=== PATIENT | male | born 1965 | race Caucasian/White ===

== ENCOUNTER 2019-11-24 16:02 | Observation (INO) | payer MEDICAID ==
[2019-11-24] MEDS ORDERED: Sodium Chloride 0.9% 10 ML Syringe FLUSH PRN (17:05)
[2019-11-24] MEDS ORDERED: Sodium Chloride 0.9% 1,000 ML IV SCH (17:15)
[2019-11-24] MEDS ORDERED: Acetaminophen 325 MG Tab PO PRN (18:24)
[2019-11-24] MEDS: Sodium Chloride 0.9% 1,000 ML IV SCH (19:40)
[2019-11-24] MEDS ORDERED: Bacitracin Oint 1 GM U/D Packet TOP ONE (20:31)
[2019-11-24] MEDS ORDERED: Albuterol Inhaler **OWN MED INH PRN (20:32)
--- NOTE | 2019-11-24 20:43 | PCM.HP.2 ---
H&P History of Present Illness - General Date of Service: 11/24/19 Admit Problem/Dx: Admission Diagnosis/Problem Admission Diagnosis/Problem Difficulty breathing Source of Information: Patient History Limitations: Reports: No Limitations - History of Present Illness Onset of Symptoms: Reports: Gradual Symptom Onset Date: 11/17/19 Duration of Symptoms: Reports: Getting Worse Location: Reports: Chest, Generalized Severity: Moderate Improves with: Reports: None Worsens with: Reports: Movement Associated Symptoms: Reports: Cough, Headaches, Shortness of Breath, Weakness. Denies: Fever/Chills, Nausea/Vomiting - Related Data Allergies/Adverse Reactions: Allergies Allergy/AdvReac Type Severity Reaction Status Date / Time No Known Allergies Allergy Verified 01/12/17 07:45 Home Medications: Home Meds Lisinopril 10 mg PO DAILY 01/11/17 [History] Albuterol Sulfate [Proair Hfa] 1 - 2 inh PO DAILY PRN 11/24/19 [History] Aspirin [Lo-Dose Aspirin EC] 81 mg PO DAILY 11/24/19 [History] Budesonide/Formoterol [Symbicort 160-4.5 MCG] 2 inh PO BID 11/24/19 [History] Past Medical History Cardiovascular History: Reports: Hypertension Respiratory History: Reports: COPD, SOB Other Respiratory History: SMOKES, CONGESTED, PRODUCTIVE COUGH, Musculoskeletal History: Reports: Back Pain, Chronic - Infectious Disease History Infectious Disease History: Reports: Influenza Other Infectious Disease History: INf A three years ago - Past Surgical History Other Cardiovascular Surgeries/Procedures: HX PREVIOUS STRESS TEST BUT NEGATIVE Musculoskeletal Surgical History: Reports: Other (See Below) Other Musculoskeletal Surgeries/Procedures:: L5 S! fusion Social & Family History - Family History Cardiac: Reports: Bypass, CAD, Heart Valve Replacement, Hypertension Respiratory: Reports: COPD Musculoskeletal: Reports: Arthritis, Back pain, Chronic, Osteoarthritis Endocrine/Metabolic: Reports: Diabetes, type II, Obesity/MBI 30+ - Tobacco Use Smoking Status *Q: Current Every Day Smoker Years of Tobacco use: 42 Packs/Tins Daily: 1 Used Tobacco, but Quit: No Second Hand Smoke Exposure: No - Caffeine Use Caffeine Use: Reports: Coffee - Alcohol Use Days Per Week of Alcohol Use: 5 Number of Drinks Per Day: 4 Total Drinks Per Week: 20 - Recreational Drug Use Recreational Drug Use: Yes Drug Use in Last 12 Months: Yes Recreational Drug Type: Reports: Marijuana/Hashish Recreational Drug Use Frequency: Weekly H&P Review of Systems - Review of Systems: Review Of Systems: See Below General: Reports: Decreased Appetite. Denies: Fever, Weakness HEENT: Reports: No Symptoms Pulmonary: Reports: Shortness of Breath, Cough Cardiovascular: Reports: Dyspnea on Exertion. Denies: Chest Pain, Orthopnea Gastrointestinal: Reports: Diarrhea. Denies: Abdominal Pain, Nausea, Vomiting Musculoskeletal: Reports: No Symptoms Skin: Reports: No Symptoms Neurological: Reports: No Symptoms Exam - Exam Exam: See Below - Vital Signs Vital Signs: Last Vital Signs Temp 37.2 C 11/24/19 18:24 Pulse 85 11/24/19 18:24 Resp 20 11/24/19 18:24 BP 143/84 H 11/24/19 18:24 Pulse Ox 92 L 11/24/19 18:25 Weight: 63.321 kg - Exam Quality Assessment: No: Supplemental Oxygen General: Alert, Oriented, Cooperative, Mild Distress HEENT: PERRLA, Conjunctiva Clear, Hearing Intact, Mucosa Moist & Roseto, Nares Patent, Posterior Pharynx Clear Neck: Supple, Full Range of Motion Lungs: Clear to Auscultation, Other (Breath sounds equal, expiratory wheezes in all field; occasional crackles bilaterally) Cardiovascular: Regular Rate, Regular Rhythm GI/Abdominal Exam: Soft, Non-Tender, No Distention Back Exam: Normal Inspection Extremities: Normal Inspection, Normal Range of Motion, Normal Capillary Refill Skin: Warm, Dry, Intact, Wound (abrasion to outer aspect) Neuro Extensive - Mental Status: Alert, Oriented x3, Normal Mood/Affect - Patient Data Lab Results Last 24 hrs: Laboratory Results - last 24 hr 11/24/19 11/24/19 Range/Units 16:17 16:17 WBC 8.8 (4.0-11.0) K/uL RBC 5.16 (4.50-6.50) M/uL Hgb 17.4 (13.0-18.0) g/dL Hct 48.2 (40.0-54.0) % MCV 93 (76-96) fL MCH 33.7 H (27.0-32.0) pg MCHC 36.1 H (31.0-35.0) g/dL RDW 12.4 (11.0-16.0) % Plt Count 263 D (150-400) K/uL MPV 10.0 (6.0-10.0) fL Neut % (Auto) 66.9 (45.0-70.0) % Lymph % (Auto) 14.3 L (20.0-40.0) % [place] % (Auto) 17.7 H (3.0-10.0) % Eos % (Auto) 0.8 L (1.0-5.0) % Baso % (Auto) 0.3 (0.0-0.5) % Neut # (Auto) 5.91 (2.00-7.50) K/uL Lymph # (Auto) 1.26 L (1.50-4.00) K/uL [place] # (Auto) 1.56 H (0.20-0.80) K/uL Eos # (Auto) 0.07 (0.04-0.40) K/uL Baso # (Auto) 0.03 (0.02-0.10) K/uL Sodium 126 L (136-145) mmol/L Potassium 4.1 (3.5-5.1) mmol/L Chloride 88 L* (98-107) mmol/L Carbon Dioxide 35.4 H (21.0-32.0) mmol/L Anion Gap 6.7 (5.0-15.0) mmol/L BUN 9 D (8-26) mg/dL Creatinine 0.72 (0.70-1.30) mg/dL Est Cr Clr Drug Dosing TNP Estimated GFR (MDRD) > 60 (>60) MLS/MIN BUN/Creatinine Ratio 12.5 (6-25) Glucose 117 H D (74-100) mg/dL Calcium 9.0 (8.5-10.1) mg/dL Result Diagrams: 11/24/19 16:17 11/24/19 16:17 Yves Results Last 24 hrs: Microbiology 11/24/19 16:17 Influenza Type A Antigen Screen - Final Nasal, Unspecified NEGATIVE INFLUENZA A VIRUS AG REFERENCE RANGE: NEGATIVE Influenza Type B Antigen Screen - Final NEGATIVE INFLUENZA B VIRUS AG REFERENCE RANGE: NEGATIVE Sepsis Event Note - Evaluation Sepsis Screening Result: No Definite Risk - Focused Exam Vital Signs: Vital Signs Temp Pulse Resp BP Pulse Ox 11/24/19 18:25 92 L 11/24/19 18:24 37.2 C 85 20 143/84 H 92 L 11/24/19 17:49 37.2 C 80 18 143/85 H 91 L Date Exam was Performed: 11/24/19 Time Exam was Performed: 21:17 Problem List Initiated/Reviewed/Updated: No Orders Last 24hrs: Active Orders 24 hr Category Date Time Status Patient Status [ADT] Routine ADT 11/24/19 18:24 Active Oxygen Therapy [RC] PRN Care 11/24/19 18:24 Active Pulse Oximetry [RC] PRN Care 11/24/19 18:25 Active Vital Signs [RC] Q4H Care 11/24/19 18:24 Active Regular Diet [DIET] Diet 11/24/19 Dinner Ordered Chest 2V [CR] Routine Exams 11/24/19 Taken BASIC METABOLIC PANEL,BMP [CHEM] Routine Lab 11/25/19 09:00 Ordered CULTURE MRSA SURVEY [RM] Routine Lab 11/24/19 19:55 Received Acetaminophen [Tylenol] Med 11/24/19 18:24 Active 650 mg PO Q4H PRN Albuterol [Ventolin HFA] Med 11/24/19 20:32 Ordered 1 - 2 inh INH DAILY PRN Aspirin [Halfprin] Med 11/25/19 08:00 Ordered 81 mg PO DAILY Bacitracin [Bacitracin Oint 1 GM] Med 11/24/19 20:31 Once 1 dose TOP ONETIME ONE Budesonide/Formoterol [Symbicort 160-4.5 MCG] Med 11/25/19 08:00 Ordered 2 inh PO BID Sodium Chloride 0.9% [Normal Saline] 1,000 ml Med 11/24/19 17:15 Active IV ASDIRECTED Sodium Chloride 0.9% [Normal Saline] 1,000 ml Med 11/24/19 20:30 Active IV ASDIRECTED Sodium Chloride 0.9% [Saline Flush] Med 11/24/19 17:05 Active 10 ml FLUSH ASDIRECTED PRN lisinopriL [Prinivil] Med 11/25/19 08:00 Pending 10 mg PO DAILY Saline Lock Insert [OM.PC] Stat Oth 11/24/19 17:05 Ordered Resuscitation Status Routine Resus Stat 11/24/19 18:24 Ordered Medication Orders Acetaminophen (Tylenol) 650 mg PO Q4H PRN PRN Reason: analgesia/fever Bacitracin (Bacitracin Oint 1 Gm) 1 dose TOP ONETIME ONE Stop: 11/24/19 20:32 Sodium Chloride (Normal Saline) 1,000 mls @ 999 mls/hr IV ASDIRECTED [facility] Last Admin: 11/24/19 18:10 Dose: 500 mls/hr Sodium Chloride (Normal Saline) 1,000 mls @ 125 mls/hr IV ASDIRECTED [facility] Lisinopril (Prinivil) 10 mg PO DAILY [facility] Sodium Chloride (Saline Flush) 10 ml FLUSH ASDIRECTED PRN PRN Reason: Keep Vein Open
[2019-11-24] MEDS: Nicotine 21 MG/24 Hr Patch TRDERM SCH (23:21)
[2019-11-25] MEDS: Sodium Chloride 0.9% 1,000 ML IV SCH (03:40)
[2019-11-25] MEDS ORDERED: Aspirin 81 MG Tab.EC **OWN MED PO SCH (08:00)
[2019-11-25] MEDS ORDERED: Lisinopril 10 MG Tab **OWN MED PO SCH (08:00)
[2019-11-25] MEDS ORDERED: Nicotine 21 MG/24 Hr Patch TRDERM SCH (08:00)
[2019-11-25] MEDS ORDERED: Bacitracin Oint 1 GM U/D Packet ONE (08:51)
[2019-11-25] MEDS: Nicotine 21 MG/24 Hr Patch TRDERM SCH (09:01)
--- NOTE | 2019-11-25 09:26 | CR ---
Date of Service: 11/24/19 Clinical Data: Acute bronchitis, unspecified PA AND LATERAL CHEST: Comparison is made to a prior exam dated 10/18/19. The heart size is normal. The lungs remain hyperexpanded but clear. No pneumothorax. No pleural effusions. No evidence of acute intrathoracic disease. [id number] [facility]
--- NOTE | 2019-11-25 11:48 | PCM.SN ---
- Free Text/Narrative Note: S/O: Patient reports feeling short of breath with any activity. Also states that he has been having difficulty sleeping and has been waking up feeling short of breath. Nursing reported patient's oxygen saturations are in upper 80s ; oxygen applied via nasal cannula and saturations immediately improved. Oxygen used during the night and patient reports he slept "the best I have in a long time!" Nursing reports patient saturation >90% with any activity. PE General: alert, in mild respiratory distress with any activity. HEENT: normocephalic, eyes clear; nose and throat clear. Chest: symmetric Lungs: expiratory wheezes bilaterally with occasional coarse crackles-improve with nebulized medications but do not clear completely. Frequent coarse, productive cough. Heart: normal S1/S2 A: Hypoxia with activity and sleep. P: Home oxygen therapy to keep oxygen saturation >90% at all times.
[2019-11-25 12:57] VITALS: BP 128/82; PULSE 86
--- NOTE | 2019-11-25 13:55 | PCM.DCSUM1 ---
Discharge Summary - Hospital Course Free Text/Narrative:: Patient reports sleeping well last night for the first time in a while. He was given oxygen during the night and saturations were maintained greater than 90%. He states he feels well this morning and denies headache, nausea, vomiting. He has a bit more energy today and has a good appetite. He is quite motivated to stop smoking. HPI Initial Comments: See admit note Diagnosis: Stroke: No - Discharge Data Discharge Date: 11/25/19 Discharge Disposition: Home, Self-Care 01 Condition: Good - Referral to Home Health Primary Care Physician: PCP None - Discharge Diagnosis/Problem(s) (1) Hyponatremia SNOMED Code(s): 38499635 ICD Code: E87.1 - HYPO-OSMOLALITY AND HYPONATREMIA Status: Acute Priority : Medium Current Visit: Yes (2) Hypoxia SNOMED Code(s): 189882971 ICD Code: R09.02 - HYPOXEMIA Status: Acute Current Visit: Yes (3) Hypoxia SNOMED Code(s): 879749815 ICD Code: R09.02 - HYPOXEMIA Status: Acute Current Visit: Yes (4) Nocturnal hypoxia SNOMED Code(s): 060802343 ICD Code: G47.34 - IDIO SLEEP RELATED NONOBSTRUCTIVE ALVEOLAR HYPOVENTILATION Status: Acute Current Visit: Yes - Patient Summary/Data Hospital Course: Patient was given a bolus of 1,000 mL NS as well as maintenance fluid of 125 mL per hour since admission. Na improved to 131 this morning, Cl back to normal level. Patient has been observed to be quite short of breath with activity and was started on supplemental oxygen as needed last evening. He reports a much better night of sleep with the oxygen. A nicotine patch was ordered for the patient and he states to me that he is very motivated to quit smoking; these will be prescribed for home use. Breath sounds remain coarse with bilateral wheezes. Because his CXR was negative for acute findings, he will not be given antibiotics. Given his oxygen requirement, he was referred for home oxygen therapy. This patient was instructed to recheck with the clinic in about a week or return sooner if he is just not feeling better or feels worse in any way. - Patient Instructions Diet: Heart Healthy Diet Driving: May Drive Today Showering/Bathing: May Shower - Discharge Plan *PRESCRIPTION DRUG MONITORING PROGRAM REVIEWED*: No *COPY OF PRESCRIPTION DRUG MONITORING REPORT IN PATIENT ROCHELLE: No Home Medications: Home Meds Lisinopril 10 mg PO DAILY 01/11/17 [History] Albuterol Sulfate [Proair Hfa] 1 - 2 inh PO DAILY PRN 11/24/19 [History] Aspirin [Lo-Dose Aspirin EC] 81 mg PO DAILY 11/24/19 [History] Budesonide/Formoterol [Symbicort 160-4.5 MCG] 2 inh PO BID 11/24/19 [History] Oxygen Therapy Mode: Nasal Cannula Oxygen Flow Rate (L/min): 2 (night only) - Discharge Summary/Plan Comment DC Time >30 min.: Yes - Patient Data Vitals - Most Recent: Last Vital Signs Temp 36.9 C 11/25/19 12:56 Pulse 86 11/25/19 12:56 Resp 17 11/25/19 07:28 BP 128/82 11/25/19 12:58 Pulse Ox 97 11/25/19 12:56 Weight - Most Recent: 63.321 kg I&O - Last 24 hours: Intake & Output 11/24/19 11/25/19 11/25/19 22:59 06:59 14:59 Intake Total 1500 Balance 1500 Lab Results - Last 24 hrs: Laboratory Results - last 24 hr 11/24/19 11/24/19 11/25/19 Range/Units 16:17 16:17 07:10 WBC 8.8 (4.0-11.0) K/uL RBC 5.16 (4.50-6.50) M/uL Hgb 17.4 (13.0-18.0) g/dL Hct 48.2 (40.0-54.0) % MCV 93 (76-96) fL MCH 33.7 H (27.0-32.0) pg MCHC 36.1 H (31.0-35.0) g/dL RDW 12.4 (11.0-16.0) % Plt Count 263 D (150-400) K/uL MPV 10.0 (6.0-10.0) fL Neut % (Auto) 66.9 (45.0-70.0) % Lymph % (Auto) 14.3 L (20.0-40.0) % [place] % (Auto) 17.7 H (3.0-10.0) % Eos % (Auto) 0.8 L (1.0-5.0) % Baso % (Auto) 0.3 (0.0-0.5) % Neut # (Auto) 5.91 (2.00-7.50) K/uL Lymph # (Auto) 1.26 L (1.50-4.00) K/uL [place] # (Auto) 1.56 H (0.20-0.80) K/uL Eos # (Auto) 0.07 (0.04-0.40) K/uL Baso # (Auto) 0.03 (0.02-0.10) K/uL Sodium 126 L 131 L (136-145) mmol/L Potassium 4.1 4.0 (3.5-5.1) mmol/L Chloride 88 L* 95 L (98-107) mmol/L Carbon Dioxide 35.4 H 33.9 H (21.0-32.0) mmol/L Anion Gap 6.7 6.1 (5.0-15.0) mmol/L BUN 9 D 5 L D (8-26) mg/dL Creatinine 0.72 0.56 L D (0.70-1.30) mg/dL Est Cr Clr Drug Dosing TNP 131.92 Estimated GFR (MDRD) > 60 > 60 (>60) MLS/MIN BUN/Creatinine Ratio 12.5 8.9 (6-25) Glucose 117 H D 98 (74-100) mg/dL Calcium 9.0 8.0 L (8.5-10.1) mg/dL KIMBERLY Results - Last 24 hrs: Microbiology 11/24/19 16:17 Influenza Type A Antigen Screen - Final Nasal, Unspecified NEGATIVE INFLUENZA A VIRUS AG REFERENCE RANGE: NEGATIVE Influenza Type B Antigen Screen - Final NEGATIVE INFLUENZA B VIRUS AG REFERENCE RANGE: NEGATIVE Med Orders - Current: Current Medications Acetaminophen (Tylenol) 650 mg PO Q4H PRN PRN Reason: analgesia/fever Albuterol (Ventolin Hfa) 0 gm INH DAILY PRN PRN Reason: Dyspnea Aspirin (Halfprin) 81 mg PO DAILY [facility] Last Admin: 11/25/19 12:58 Dose: 81 mg Sodium Chloride (Normal Saline) 1,000 mls @ 999 mls/hr IV ASDIRECTED [facility] Last Admin: 11/24/19 18:10 Dose: 500 mls/hr Sodium Chloride (Normal Saline) 1,000 mls @ 125 mls/hr IV ASDIRECTED [facility] Last Admin: 11/25/19 03:40 Dose: 125 mls/hr Lisinopril (Prinivil) 10 mg PO DAILY [facility] Last Admin: 11/25/19 12:58 Dose: 10 mg Nicotine (Habitrol) 21 mg TRDERM DAILY [facility] Last Admin: 11/25/19 09:01 Dose: 21 mg Symbicort 160-4.5 Mcg Inhaler Own Med 0 inh PO BID [facility] Last Admin: 11/25/19 10:00 Dose: 2 inh Sodium Chloride (Saline Flush) 10 ml FLUSH ASDIRECTED PRN PRN Reason: Keep Vein Open Discontinued Medications Bacitracin (Bacitracin Oint 1 Gm) 1 dose TOP ONETIME ONE Stop: 11/24/19 20:32 Last Admin: 11/24/19 20:53 Dose: 1 dose Bacitracin (Bacitracin Oint 1 Gm) Confirm Administered Dose 1 dose .ROUTE .STK- MED ONE Stop: 11/25/19 08:52 Last Admin: 11/25/19 09:02 Dose: 1 dose Nicotine (Habitrol) 21 mg TRDERM DAILY [facility]
== END 2019-11-25 14:48 | disposition home or self-care (01) ==
LOC: LB.CLINIC 16:02 → LB.MS 16:50 → UNDOADMOB 16:50 → LB.MS 18:24
PROVIDERS: ADMIT Nurse Practitioner; ATTEND Nurse Practitioner
DX: G47.34 Idiopathic sleep related nonobstructive alveolar hypoventilation (principal); E87.1 Hypo-osmolality and hyponatremia; I10 Essential (primary) hypertension; J44.9 Chronic obstructive pulmonary disease, unspecified; F17.210 Nicotine dependence, cigarettes, uncomplicated; Z79.82 Long term (current) use of aspirin; Z79.899 Other long term (current) drug therapy
CPT/HCPCS: 36415; 71046; 80048; 85025; 87804; 87804-59; 96360; 96361; A9270-GY; G0378; G0379; J7030

== ENCOUNTER 2021-10-04 21:30 | Observation (INO) | payer MEDICARE, MEDICAID ==
[2021-10-04] MEDS ORDERED: Ketorolac 30 MG/ML SDV IM ONE (22:03)
[2021-10-04] MEDS: Albuterol/Ipratropium 3.0-0.5 MG/3 ML Neb Soln NEB ONE ×2 (22:08→22:45)
--- NOTE | 2021-10-04 23:29 | EDM.PDOC ---
ED HPI GENERAL MEDICAL PROBLEM - General Chief Complaint: Respiratory Problem Stated Complaint: SOB Time Seen by Provider: 10/04/21 21:45 Source of Information: Reports: Patient History Limitations: Reports: No Limitations - History of Present Illness INITIAL COMMENTS - FREE TEXT/NARRATIVE: 56-year-old male presents to the ED in room 172. With shortness of breath secondary to fall from standing to attack. No loss of consciousness patient struck left ankle left knee left hip then chest arm extended. This happened approximately 38 to 48 h ago. Patient already has a pre-existing history of severe COPD and shortness of breath made worse by rib pain and splinting. Positive for: Diarrhea yesterday only. Patient denies any head, neck, back pain. Patient denies syncope/near syncope, constipation, nausea vomiting, blurred vision, difficulty swallowing, headache, swollen joints. Onset: Sudden Onset Date: 10/03/21 Duration: Day(s): (2) Location: Reports: Chest, Pelvis, Lower Extremity, Left Quality: Reports: Ache Severity: Severe (Chest) Worsens with: Reports: Breathing, Movement Context: Reports: Trauma Associated Symptoms: Reports: Shortness of Breath Left Chest Pain Score (Numeric/FACES): 4 - Related Data Allergies Allergy/AdvReac Type Severity Reaction Status Date / Time No Known Allergies Allergy Verified 01/12/17 07:45 Home Meds: Home Meds Lisinopril 10 mg PO DAILY 01/11/17 [History] Albuterol Sulfate [Proair Hfa] 1 - 2 inh PO DAILY PRN 11/24/19 [History] Budesonide/Formoterol [Symbicort 160-4.5 MCG] 2 inh PO BID 11/24/19 [History] Fluticasone Propion/Salmeterol [Advair 250-50 Diskus] 1 puff INH BID 10/04/21 [History] Past Medical History Cardiovascular History: Reports: Hypertension Respiratory History: Reports: COPD, SOB Other Respiratory History: SMOKES, CONGESTED, PRODUCTIVE COUGH, Musculoskeletal History: Reports: Back Pain, Chronic - Infectious Disease History Infectious Disease History: Reports: Influenza Other Infectious Disease History: INf A three years ago - Past Surgical History Other Cardiovascular Surgeries/Procedures: HX PREVIOUS STRESS TEST BUT NEGATIVE Musculoskeletal Surgical History: Reports: Other (See Below) Other Musculoskeletal Surgeries/Procedures:: L5 S! fusion Social & Family History - Family History Cardiac: Reports: Bypass, CAD, Heart Valve Replacement, Hypertension Respiratory: Reports: COPD Musculoskeletal: Reports: Arthritis, Back pain, Chronic, Osteoarthritis Endocrine/Metabolic: Reports: Diabetes, type II, Obesity/MBI 30+ - Caffeine Use Caffeine Use: Reports: Coffee ED ROS GENERAL - Review of Systems Review Of Systems: Comprehensive ROS is negative, except as noted in HPI. ED EXAM, GENERAL - Physical Exam Exam: See Below Free Text/Narrative:: 56-year-old male presents to the ED room 172. Patient is in obvious respiratory distress, gasping and grunting, speaking in 1-2 word sentences. Patient is alert and oriented 3/3 GCS 4 5 6. Facial skin is cyanotic around the nose and mouth. No obvious trauma noted. Exam Limited By: No Limitations General Appearance: Alert, WD/WN, No Apparent Distress Eye Exam: Bilateral Eye: EOMI, Normal Inspection, PERRL Ears: Normal External Exam, Hearing Grossly Normal Nose: Other (Bulbous, rhinophyma, cyanosis) Throat/Mouth: Normal Inspection, Normal Lips, Normal Teeth, Normal Oropharynx, Normal Voice, No Airway Compromise Head: Atraumatic, Normocephalic Neck: Normal Inspection, Supple, Non-Tender, Full Range of Motion, Other (No pain on palpation, trachea is midline, no subcu air noted. Patient has full range of motion without pain.) Respiratory/Chest: Respiratory Distress, Decreased Breath Sounds, Rhonchi, Wheezing, Accessory Muscle Use, Retractions, Splinting, Prolonged Expiration Cardiovascular: Normal Peripheral Pulses, Regular Rate, Rhythm, No Edema GI/Abdominal: Soft, Non-Tender, No Distention, No Mass Back Exam: Normal Inspection. No: CVA Tenderness (R), CVA Tenderness (L), Paraspinal Tenderness, Vertebral Tenderness Extremities: Normal Range of Motion, Normal Capillary Refill, Other (Patient's hands are erythematic, minor clubbing noted, superficial bruising noted on both arms. Left hip pain upon palpation minor range of motion intact no deformity noted. Left knee has small 1 in. abrasion no contusion noted range of motion is intact. Left ankle small abrasion lateral malleolu) Neurological: Alert, Oriented, Normal Cognition Psychiatric: Normal Affect, Normal Mood Skin Exam: Warm, Dry, Intact, No Rash, Cyanosis Lymphatic: No Adenopathy #1 Interpretation EKG Date: 10/04/21 Time: 11:10 Rhythm: NSR Rate (Beats/Min): 85 (No ectopy, no ST elevation or depression noted, low amplitude and artifact noted in lead I) Course - Vital Signs Last Recorded V/S: Last Vital Signs Temp Pulse 99 10/04/21 22:56 Resp 20 10/04/21 22:56 BP Pulse Ox 100 10/04/21 22:56 - Orders/Labs/Meds Orders: Active Orders 24 hr Category Date Time Status RT Aerosol Therapy [RC] ASDIRECTED Care 10/04/21 22:04 Ordered Chest 1V Frontal [CR] Stat Exams 10/04/21 22:13 Ordered CBC WITH AUTO DIFF [HEME] Stat Lab 10/04/21 22:01 Ordered COMPREHENSIVE METABOLIC PN,CMP [CHEM] Stat Lab 10/04/21 22:01 Ordered LACTIC ACID [CHEM] Stat Lab 10/04/21 22:02 Ordered TROPONIN I [CHEM] Stat Lab 10/04/21 22:01 Ordered Labs: Laboratory Tests 10/04/21 Range/Units 22:30 SARS CoV-2 RNA Rapid RADHA Negative Meds: Medications Discontinued Medications Generic Name Dose Route Start Last Admin Trade Name Freq PRN Reason Stop Dose Admin Albuterol/Ipratropium 3 ml 10/04/21 22:03 Albuterol/Ipratropium 3.0-0.5 Mg/3 Ml Neb Soln NEB 10/04/21 22:04 ONETIME ONE Ketorolac Tromethamine 30 mg 10/04/21 22:03 Ketorolac 30 Mg/Ml Sdv IM 10/04/21 22:04 ONETIME ONE - Radiology Interpretation Free Text/Narrative:: Chest x-ray impression: 1. Central lobar emphysematous lung disease present. 2. Pulmonary artery is enlarged, suspicion for chronic pulmonary-artery hypertension 3. No acute process identified. 4. No bone or joint fractures noted Departure - Departure Time of Disposition: 22:30 Disposition: Refer to Observation Condition: Good Clinical Impression: Shortness of breath, Elevated troponin - Discharge Information *PRESCRIPTION DRUG MONITORING PROGRAM REVIEWED*: No *COPY OF PRESCRIPTION DRUG MONITORING REPORT IN PATIENT ROCHELLE: No Forms: ED Department Discharge Care Plan Goals: Reassess shortness of breath in the morning, serial troponins to rule out cardiac, nebulizer treatments to ease respiratory distress, pain relief so patient can rest. Sepsis Event Note (ED) - Focused Exam Vital Signs: Vital Signs Pulse Resp Pulse Ox 10/04/21 22:56 99 20 100 - Problem List Review Problem List Initiated/Reviewed/Updated: Yes - My Orders Last 24 Hours: My Active Orders 10/04/21 22:01 CBC WITH AUTO DIFF [HEME] Stat COMPREHENSIVE METABOLIC PN,CMP [CHEM] Stat TROPONIN I [CHEM] Stat 10/04/21 22:02 LACTIC ACID [CHEM] Stat 10/04/21 22:04 RT Aerosol Therapy [RC] ASDIRECTED 10/04/21 22:13 Chest 1V Frontal [CR] Stat - Assessment/Plan Last 24 Hours: My Active Orders 10/04/21 22:01 CBC WITH AUTO DIFF [HEME] Stat COMPREHENSIVE METABOLIC PN,CMP [CHEM] Stat TROPONIN I [CHEM] Stat 10/04/21 22:02 LACTIC ACID [CHEM] Stat 10/04/21 22:04 RT Aerosol Therapy [RC] ASDIRECTED 10/04/21 22:13 Chest 1V Frontal [CR] Stat Assessment:: Shortness of breath secondary to fall possible occult fractures to ribs causing splinting and decreased inspiratory effort. Chest wall pain Plan: 1. Shortness of breathDuoNeb, CPAP, pain relief 2. Elevated troponinserial EKGs, serial troponin 3. Pain controlVicodin
[2021-10-04] MEDS ORDERED: Albuterol 8 GM Inhaler INH PRN (23:39)
[2021-10-04] MEDS ORDERED: Acetaminophen/HYDROcodone 325-5 MG Tab PO PRN (23:48)
[2021-10-05] MEDS: Albuterol/Ipratropium 3.0-0.5 MG/3 ML Neb Soln NEB SCH ×4 (00:36→09:32)
[2021-10-05] MEDS ORDERED: Heparin Sodium 5,000 Units/ML Vial IVPUSH ONE (04:45)
[2021-10-05] MEDS ORDERED: Heparin Sodium/D5W 25,000 UNITS/500 ML BAG IV SCH (04:45)
[2021-10-05] MEDS ORDERED: Nitroglycerin/D5W 25 MG/250 ML BOTTLE IV SCH (05:15)
[2021-10-05] MEDS ORDERED: Sodium Chloride 0.9% 1,000 ML IV SCH (06:15)
[2021-10-05 06:50] VITALS: PULSE 81
[2021-10-05] MEDS ORDERED: Non-Formulary Medication 1 Each (Fluticasone Propion/Salmeterol [Advair 250-50 Diskus] 1 E INH SCH (08:00)
[2021-10-05] MEDS ORDERED: Formoterol/Mometasone 200-5 MCG 8.8 GM Inhaler IH SCH (08:00)
[2021-10-05] MEDS ORDERED: Lisinopril 10 MG Tab PO SCH (08:00)
[2021-10-05] MEDS ORDERED: methylPREDNISolone Sod Succ 125 MG in Sodium Chloride 0.9% 100 ML IV ONE (09:28)
[2021-10-05] MEDS ORDERED: Albuterol/Ipratropium 3.0-0.5 MG/3 ML Neb Soln NEB SCH (09:30)
--- NOTE | 2021-10-05 09:43 | PCM.HP.2 ---
H&P History of Present Illness - General Date of Service: 10/05/21 Admit Problem/Dx: Admission Diagnosis/Problem Admission Diagnosis/Problem Shortness of breath 1. Shortness of breath 2. Elevated troponin 3. Rib pain Source of Information: Patient, EMS History Limitations: Reports: No Limitations - History of Present Illness Initial Comments - Free Text/Narative: 56-year-old male presented to the ED via ambulance after a fall that occurred at 0900 10/03/21. This was a fall from standing onto his deck patient struck his left ankle left knee left hip arm extended then struck his chest, this was an unprotected fall. There was no loss of consciousness, no head pain, no neck pain no back pain. On arrival to ED patient was speaking in 1-2 word sentences, gasping, grunting, splinting. Patient was hypoxic with cyanosis of the face including nose and around mouth. Patient presented more like a classic COPD exacerbation. Patient was quickly turned around regarding his respiratory status with DuoNeb, and pain relief with ketorolac and Vicodin. Patient's cyanosis resolved, patient was able to speak in full sentences. Patient subsequent labs came back with an elevated troponin at 2359 of 0.6784 hours later at 0400 troponin was 1.265. Only other outstanding lab was elevated RBC at 18.7. Patient was admitted for observation, after consultation with [facility] patient was started on a heparin drip with a target PTT of 50-90, and a as needed nitro drip was ordered if angina presented. Patient would continue to receive DuoNeb's every 4 hours, and 125 mg of Solu-Medrol. Left Chest Pain Score (Numeric/FACES): 6 - Related Data Allergies/Adverse Reactions: Allergies Allergy/AdvReac Type Severity Reaction Status Date / Time No Known Allergies Allergy Verified 01/12/17 07:45 Home Medications: Home Meds Lisinopril 10 mg PO DAILY 01/11/17 [History] Albuterol Sulfate [Proair Hfa] 1 - 2 inh PO DAILY PRN 11/24/19 [History] Budesonide/Formoterol [Symbicort 160-4.5 MCG] 2 inh PO BID 11/24/19 [History] Fluticasone Propion/Salmeterol [Advair 250-50 Diskus] 1 puff INH BID 10/04/21 [History] Past Medical History Cardiovascular History: Reports: Hypertension Respiratory History: Reports: COPD, SOB Other Respiratory History: SMOKES, CONGESTED, PRODUCTIVE COUGH, Musculoskeletal History: Reports: Back Pain, Chronic - Infectious Disease History Infectious Disease History: Reports: Influenza Other Infectious Disease History: INf A three years ago - Past Surgical History Other Cardiovascular Surgeries/Procedures: HX PREVIOUS STRESS TEST BUT NEGATIVE Musculoskeletal Surgical History: Reports: Other (See Below) Other Musculoskeletal Surgeries/Procedures:: L5 S! fusion Social & Family History - Family History Cardiac: Reports: Bypass, CAD, Heart Valve Replacement, Hypertension Respiratory: Reports: COPD Musculoskeletal: Reports: Arthritis, Back pain, Chronic, Osteoarthritis Endocrine/Metabolic: Reports: Diabetes, type II, Obesity/MBI 30+ - Tobacco Use Tobacco Use Status *Q: Current Every Day Tobacco User Years of Tobacco use: 40 Packs/Tins Daily: 0.5 - Caffeine Use Caffeine Use: Reports: Coffee - Alcohol Use Days Per Week of Alcohol Use: 7 Number of Drinks Per Day: 4 Total Drinks Per Week: 28 - Recreational Drug Use Recreational Drug Use: Yes Recreational Drug Type: Reports: Marijuana/Hashish Recreational Drug Use Frequency: Socially H&P Review of Systems - Review of Systems: Review Of Systems: See Below Free Text/Narrative: 56-year-old male complaining of shortness of breath and chest pain secondary to trauma. General: Reports: Weakness, Other (Dyspnea on exertion) HEENT: Reports: No Symptoms Pulmonary: Reports: Shortness of Breath, Wheezing (What is) Cardiovascular: Reports: Chest Pain Gastrointestinal: Reports: No Symptoms Genitourinary: Reports: No Symptoms (Would you do) Musculoskeletal: Reports: Joint Pain (Knee abrasion, ankle abrasion both on the left side, left hip pain secondary to fall) Skin: Reports: Cyanosis, Pallor, Diaphoresis (All resolved by admission time) Psychiatric: Reports: No Symptoms Neurological: Reports: No Symptoms Hematologic/Lymphatic: Reports: No Symptoms Exam - Exam Exam: See Below - Vital Signs Vital Signs: Last Vital Signs Temp 97.1 F 10/05/21 03:26 Pulse 81 10/05/21 06:48 Resp 22 H 10/05/21 06:48 BP 91/64 10/05/21 07:12 Pulse Ox 96 10/05/21 06:48 Weight: 138 lb 2.56 oz - Exam Quality Assessment: Supplemental Oxygen (Do we have some compression socks for this), DVT Prophylaxis (ADRIANA [place]) General: Alert, Oriented HEENT: PERRLA, Pupils Equal, Pupils Reactive (Scleral injection) Neck: Supple, Trachea Midline, Full Range of Motion, JVD Lungs: Decreased Breath Sounds, Wheezing (Expiratory all [place]) Cardiovascular: Regular Rate, Regular Rhythm GI/Abdominal Exam: Soft, Non-Tender, No Distention, No Mass Back Exam: Normal Inspection, Full Range of Motion. No: CVA Tenderness (R), CVA Tenderness (L), Muscle Spasm, Paraspinal Tenderness, Vertebral Tenderness Extremities: Normal Range of Motion, Non-Tender, No Pedal Edema, Normal Capillary Refill (Left knee small abrasion with no contusion no deformity, left ankle small abrasion lateral malleolus no contusion full range of motion of knee and ankle CMS is intact) Skin: Warm, Dry, Intact Neurological: Normal Speech, Normal Tone Neuro Extensive - Mental Status: Alert, Oriented x3, Normal Mood/Affect, Normal Cognition Neuro Extensive - Motor, Sensory, Reflexes: Normal Gait, Normal Reflexes Psychiatric: Alert, Normal Affect, Normal Mood - Patient Data Lab Results Last 24 hrs: Laboratory Results - last 24 hr 10/04/21 10/04/21 10/04/21 Range/Units 22:30 22:30 22:30 WBC 14.2 H D (4.0-11.0) K/uL RBC 5.42 (4.50-6.50) M/uL Hgb 18.7 H* (13.0-18.0) g/dL Hct 53.2 (40.0-54.0) % MCV 98 H (76-96) fL MCH 34.5 H (27.0-32.0) pg MCHC 35.2 H (31.0-35.0) g/dL RDW 12.4 (11.0-16.0) % Plt Count 221 (150-400) K/uL MPV 10.5 H (6.0-10.0) fL Neut % (Auto) 84.1 H (45.0-70.0) % Lymph % (Auto) 6.7 L (20.0-40.0) % [place] % (Auto) 8.5 (3.0-10.0) % Eos % (Auto) 0.6 L (1.0-5.0) % Baso % (Auto) 0.1 (0.0-0.5) % Neut # (Auto) 11.94 H (2.00-7.50) K/uL Lymph # (Auto) 0.95 L (1.50-4.00) K/uL [place] # (Auto) 1.20 H (0.20-0.80) K/uL Eos # (Auto) 0.09 (0.04-0.40) K/uL Baso # (Auto) 0.02 (0.02-0.10) K/uL APTT (24.4-33.2) SECONDS Sodium 132 L (136-145) mmol/L Potassium 4.8 (3.5-5.1) mmol/L Chloride 92 L (98-107) mmol/L Carbon Dioxide 38.7 H (21.0-32.0) mmol/L Anion Gap 6.1 (5.0-15.0) mmol/L BUN 12 D (8-26) mg/dL Creatinine 0.68 L (0.70-1.30) mg/dL Est Cr Clr Drug Dosing TNP Estimated GFR (MDRD) > 60 (>60) MLS/MIN BUN/Creatinine Ratio 17.6 (6-25) Glucose 131 H D (74-100) mg/dL Lactic Acid 1.2 (0.4-2.0) mmol/L Calcium 9.2 (8.5-10.1) mg/dL Total Bilirubin 0.8 D (0.0-1.0) mg/dL AST 27 (15-37) U/L ALT 36 (12-78) U/L Alkaline Phosphatase 103 (46-116) U/L Troponin I 0.678 H* D (0.000-0.060) ng/mL Total Protein 7.8 (6.4-8.2) g/dL Albumin 4.4 (3.4-5.0) g/dL Globulin 3.4 (2.2-4.2) g/dL Albumin/Globulin Ratio 1.3 (0.8-2.0) SARS CoV-2 RNA Rapid RADHA 10/04/21 10/05/21 10/05/21 Range/Units 22:30 03:30 04:35 WBC (4.0-11.0) K/uL RBC (4.50-6.50) M/uL Hgb (13.0-18.0) g/dL Hct (40.0-54.0) % MCV (76-96) fL MCH (27.0-32.0) pg MCHC (31.0-35.0) g/dL RDW (11.0-16.0) % Plt Count (150-400) K/uL MPV (6.0-10.0) fL Neut % (Auto) (45.0-70.0) % Lymph % (Auto) (20.0-40.0) % [place] % (Auto) (3.0-10.0) % Eos % (Auto) (1.0-5.0) % Baso % (Auto) (0.0-0.5) % Neut # (Auto) (2.00-7.50) K/uL Lymph # (Auto) (1.50-4.00) K/uL [place] # (Auto) (0.20-0.80) K/uL Eos # (Auto) (0.04-0.40) K/uL Baso # (Auto) (0.02-0.10) K/uL APTT 27.6 (24.4-33.2) SECONDS Sodium (136-145) mmol/L Potassium (3.5-5.1) mmol/L Chloride (98-107) mmol/L Carbon Dioxide (21.0-32.0) mmol/L Anion Gap (5.0-15.0) mmol/L BUN (8-26) mg/dL Creatinine (0.70-1.30) mg/dL Est Cr Clr Drug Dosing Estimated GFR (MDRD) (>60) MLS/MIN BUN/Creatinine Ratio (6-25) Glucose (74-100) mg/dL Lactic Acid (0.4-2.0) mmol/L Calcium (8.5-10.1) mg/dL Total Bilirubin (0.0-1.0) mg/dL AST (15-37) U/L ALT (12-78) U/L Alkaline Phosphatase (46-116) U/L Troponin I 1.265 H* D (0.000-0.060) ng/mL Total Protein (6.4-8.2) g/dL Albumin (3.4-5.0) g/dL Globulin (2.2-4.2) g/dL Albumin/Globulin Ratio (0.8-2.0) SARS CoV-2 RNA Rapid RADHA Negative Result Diagrams: 10/04/21 22:30 10/04/21 22:30 Sepsis Event Note - Evaluation Sepsis Screening Result: Possible Sepsis Risk - Focused Exam Vital Signs: Vital Signs Temp Pulse Resp BP BP Pulse Ox 10/05/21 07:12 91/64 10/05/21 06:48 81 22 H 99/65 96 10/05/21 06:12 85 12 90/67 96 10/05/21 03:26 97.1 F 83 20 98/72 100 10/04/21 23:26 98.6 F 82 18 105/82 94 L 10/04/21 22:56 99 20 100 - Problem List (1) Elevated troponin SNOMED Code(s): 868041898, 596896786, 610581863 ICD Code: R77.8 - OTHER SPECIFIED ABNORMALITIES OF PLASMA PROTEINS Status: Acute Current Visit: Yes (2) Shortness of breath SNOMED Code(s): 079389482 ICD Code: R06.02 - SHORTNESS OF BREATH Status: Acute Current Visit: Yes (3) Hypoxia SNOMED Code(s): 360952050 ICD Code: R09.02 - HYPOXEMIA Status: Acute Current Visit: No Problem List Initiated/Reviewed/Updated: Yes Orders Last 24hrs: Active Orders 24 hr Category Date Time Status Patient Status [ADT] Routine ADT 10/04/21 23:24 Active Oxygen Therapy [RC] 23 Care 10/04/21 23:24 Active RT Aerosol Therapy [RC] ASDIRECTED Care 10/04/21 22:04 Active RT Aerosol Therapy [RC] ASDIRECTED Care 10/04/21 23:35 Active RT Aerosol Therapy [RC] ASDIRECTED Care 10/05/21 09:29 Ordered RT BiPAP/CPAP [RC] ASDIRECTED Care 10/04/21 23:38 Active Up With Assistance [RC] ASDIRECTED Care 10/04/21 23:24 Active VTE/DVT Education [RC] Per Unit Routine Care 10/04/21 23:24 Active Vital Signs [RC] Q4H Care 10/04/21 23:24 Active Regular Diet [DIET] Diet 10/05/21 Breakfast Ordered Chest 1V Frontal [CR] Stat Exams 10/04/21 22:13 Taken CULTURE MRSA SURVEY [RM] Routine Lab 10/05/21 Received CULTURE MRSA [RM] Routine Lab 10/05/21 08:36 Ordered Hemoccult [OCCULT BLOOD DIAGNOSTIC] [OP] Routine Lab 10/04/21 23:56 Ordered PTT,PARTIAL THROMBOPLSTIN TIME [COAG] Routine Lab 10/05/21 09:30 Ordered Acetaminophen/HYDROcodone [[place] 325-5 MG] Med 10/04/21 23:48 Active 1 tab PO Q4H PRN Albuterol [Ventolin HFA] Med 10/04/21 23:39 Active 0 gm INH DAILY PRN Albuterol/Ipratropium [DuoNeb 3.0-0.5 MG/3 ML] Med 10/05/21 00:00 Active 3 ml NEB Q4H Heparin Sodium/D5W [Heparin 25,000 Units in D5W 500 ML] Med 10/05/21 04:45 Active 25,000 units in 500 ml IV TITRATE Mometasone/Formoterol [[place] 200-5 MCG] Med 10/05/21 08:00 Active 2 puff IH BID Nitroglycerin/D5W [Nitroglycerin 25 MG/D5W 250 ML] Med 10/05/21 05:15 Active 25 mg in 250 ml IV TITRATE Sodium Chloride 0.9% [Normal Saline] 1,000 ml Med 10/05/21 06:15 Active IV ASDIRECTED lisinopriL [Prinivil] Med 10/05/21 08:00 Active 10 mg PO DAILY methylPREDNISolone Sod Succ [SOLU-MedroL] 125 mg Med 10/05/21 09:28 Ordered Sodium Chloride 0.9% [Normal Saline] 100 ml IV ONETIME Resuscitation Status Routine Resus Stat 10/04/21 23:24 Ordered EKG 12 Lead [EK] Routine Ther 10/05/21 07:30 Ordered Medication Orders Hydrocodone Bitart/Acetaminophen (Acetaminophen/Hydrocodone 325-5 Mg Tab) 1 tab PO Q4H PRN PRN Reason: Pain (moderate 4-6) Last Admin: 10/05/21 07:12 Dose: 1 tab Documented by: DRE Albuterol (Albuterol 8 Gm Inhaler) 0 gm INH DAILY PRN PRN Reason: Dyspnea Albuterol/Ipratropium (Albuterol/Ipratropium 3.0-0.5 Mg/3 Ml Neb Soln) 3 ml NEB Q4H [facility] Last Admin: 10/05/21 09:32 Dose: 3 ml Documented by: Admin: 10/05/21 06:08 Dose: Not Given Documented by: Admin: 10/05/21 06:07 Dose: 3 ml Documented by: Admin: 10/05/21 00:36 Dose: 3 ml Documented by: TALIB Heparin Sodium/Dextrose (Heparin 25,000 Units In D5w 500 Ml) 25,000 units in 500 mls @ 15.04 mls/hr IV TITRATE [facility]; Protocol Last Admin: 10/05/21 05:48 Dose: 12 units/kg/hr, 15.04 mls/hr Documented by: MORIAH Cosigned by: TALIB Nitroglycerin/Dextrose (Nitroglycerin 25 Mg/D5w 250 Ml) 25 mg in 250 mls @ 6 mls/hr IV TITRATE [facility]; Protocol Sodium Chloride (Normal Saline) 1,000 mls @ 75 mls/hr IV ASDIRECTED [facility] Last Admin: 10/05/21 05:35 Dose: 75 mls/hr Documented by: TALIB Methylprednisolone Sodium Succinate 125 mg/ Sodium Chloride 100 mls @ 100 mls/hr IV ONETIME ONE Stop: 10/05/21 10:27 Lisinopril (Lisinopril 10 Mg Tab) 10 mg PO DAILY [facility] Last Admin: 10/05/21 07:12 Dose: Not Given Documented by: DRE Mometasone Furoate/Formoterol Fumar (Formoterol/Mometasone 200-5 Mcg 8.8 Gm Inhaler) 2 puff IH BID [facility] Last Admin: 10/05/21 07:11 Dose: 2 puff Documented by: DRE Assessment/Plan Comment:: 1. Elevated troponins. 2. Shortness of breath 3. Rib pain ABC, history, exam, admission Solu-Medrol 125 mg IV, work towards admission for possible catheterization, DuoNeb every 4 hours, heparin drip started per [facility] target PTT of 50-90, nitro drip as needed for angina, discussed with Dr. Rubén Youngford Missy, agreed to take patient awaiting room assignment and transportation decision.
[2021-10-05] MEDS ORDERED: methylPREDNISolone Sodium Succinate 125 MG/2 ML SDV ONE (09:46)
[2021-10-05] MEDS ORDERED: methylPREDNISolone Sodium Succinate 125 MG/2 ML SDV IVPUSH ONE (09:47)
[2021-10-05 15:04] VITALS: BP 112/78
--- NOTE | 2021-10-05 21:11 | CR ---
CLINICAL DATA: SOB with chest pain. AP CHEST, 04 OCTOBER 2021: Comparison is made to a prior exam dated 15 February 2021. The heart size is normal. The lungs are hyperexpanded, but clear. No changes from the prior study. No evidence of acute intrathoracic disease. Job: [id number] [facility]
== END 2021-10-05 18:45 ==
LOC: LB.ED 21:30 → UNDOADMOB 22:45 → LB.MS 22:45 → INTOOBSV 23:13 → LB.MS 23:13 → OBSVTOIN 23:13 → LB.MS 10-05 06:37
PROVIDERS: ADMIT Physician Assistant; ATTEND Physician Assistant
DX: R06.02 Shortness of breath (principal); R07.81 Pleurodynia; R09.02 Hypoxemia; R77.8 Other specified abnormalities of plasma proteins; J44.9 Chronic obstructive pulmonary disease, unspecified; I10 Essential (primary) hypertension; F17.210 Nicotine dependence, cigarettes, uncomplicated; Z98.890 Other specified postprocedural states; W19.XXXA Unspecified fall, initial encounter; Z79.899 Other long term (current) drug therapy; Z20.822 Contact with and (suspected) exposure to COVID-19
CPT/HCPCS: 36415; 71045; 80053; 83605; 84484; 85025; 85730; 93005; A9270; J1644; J1885; J2930; J7030; U0002; A0425; A0429; J7620-GY

== ENCOUNTER 2022-10-06 15:16 | Emergency (ER) | payer MEDICARE, MEDICAID ==
[2022-10-06 17:49] VITALS: BP 116/89; PULSE 92
== END 2022-10-06 17:20 | disposition home or self-care (01) ==
LOC: LB.ED 15:16
DX: J44.9 Chronic obstructive pulmonary disease, unspecified (principal); R00.0 Tachycardia, unspecified; I25.10 Atherosclerotic heart disease of native coronary artery without angina pectoris; F17.210 Nicotine dependence, cigarettes, uncomplicated; I10 Essential (primary) hypertension; Z79.899 Other long term (current) drug therapy
CPT/HCPCS: 36415; 71045; 80053; 84484; 85025; 93005; 99285

== ENCOUNTER 2023-05-24 20:15 | Emergency (ER) | payer MEDICARE, MEDICAID ==
[2023-05-24] MEDS ORDERED: Sodium Chloride 0.9% 10 ML Syringe FLUSH PRN (20:48)
[2023-05-24] MEDS ORDERED: methylPREDNISolone Sodium Succinate 125 MG/2 ML SDV IVPUSH ONE (20:49)
[2023-05-24] MEDS ORDERED: Albuterol/Ipratropium 3.0-0.5 MG/3 ML Neb Soln NEB SCH ×2 (21:00→21:01)
[2023-05-24 21:05] LABS: BASOPHILS ABSOLUTE AUTO 0.04 K/uL (0.02-0.10); BASOPHILS PERCENT AUTO 0.4 % (0.0-0.5); EOSINOPHILS ABSOLUTE AUTO 0.21 K/uL (0.04-0.40); EOSINOPHILS PERCENT AUTO 1.9 % (1.0-5.0); HEMATOCRIT 50.2 % (40.0-54.0); HEMOGLOBIN 17.9 g/dL (13.0-18.0); LYMPHOCYTES ABSOLUTE AUTO 1.65 K/uL (1.50-4.00); LYMPHOCYTES PERCENT AUTO 14.7 % (20.0-40.0); MEAN CORPUSCULAR HGB CONC 35.7 g/dL (31.0-35.0); MEAN CORPUSCULAR VOLUME 98 fL (76-96); MEAN PLATELET VOLUME 10.6 fL (6.0-10.0); MONOCYTES ABSOLUTE AUTO 1.52 K/uL (0.20-0.80); MONOCYTES PERCENT AUTO 13.5 % (3.0-10.0); NEUTROPHILS ABSOLUTE AUTO 7.84 K/uL (2.00-7.50); NEUTROPHILS PERCENT AUTO 69.5 % (45.0-70.0); PLATELET COUNT,PLT 213 K/uL (150-400); RED BLOOD CELL COUNT 5.11 M/uL (4.50-6.50); WHITE BLOOD CELL COUNT,WBC 11.3 K/uL (4.0-11.0)
[2023-05-24 21:26] LABS: ANION GAP 9.7 mmol/L (5.0-15.0); BUN/CREATININE RATIO 19.6 (6-25); CALCIUM 9.1 mg/dL (8.5-10.1); CARBON DIOXIDE,CO2 32.4 mmol/L (21.0-32.0); CREATININE 0.56 mg/dL (0.70-1.30); EST CRCL DRUG DOSING (CG) 139.5 mL/min; MAGNESIUM 1.9 mg/dL (1.8-2.4); POTASSIUM,K 5.1 mmol/L (3.5-5.1); TROPONIN I HIGH SENSITIVITY 5.8 pg/ml (<=60.4)
[2023-05-24] MEDS ORDERED: Albuterol 0.083% 2.5 MG/3 ML Neb Soln NEB ONE (21:42)
[2023-05-24] MEDS ORDERED: Albuterol 0.083% 2.5 MG/3 ML Neb Soln ONE (21:44)
[2023-05-24] MEDS ORDERED: Azithromycin 500 MG Tab PO SCH (21:45)
[2023-05-24] MEDS ORDERED: Azithromycin 250 MG Tab ONE (22:20)
[2023-05-24] MEDS ORDERED: predniSONE 10 MG Tab ONE (22:20)
[2023-05-24 22:44] VITALS: BP 136/86; PULSE 98
== END 2023-05-24 22:25 | disposition home or self-care (01) ==
LOC: LB.ED 20:15
DX: J44.9 Chronic obstructive pulmonary disease, unspecified (principal); R09.02 Hypoxemia; F17.219 Nicotine dependence, cigarettes, with unspecified nicotine-induced disorders; I25.10 Atherosclerotic heart disease of native coronary artery without angina pectoris; I10 Essential (primary) hypertension; Z79.899 Other long term (current) drug therapy
CPT/HCPCS: 36415; 71045; 80048; 83735; 83880; 84484; 85025; 94640; 96374; 99285-25; A9270-GY; J2930; J7512; J7620

== ENCOUNTER 2023-10-26 09:28 | Emergency (ER) | payer MEDICARE, MEDICAID ==
[2023-10-26 09:40] VITALS: BP 109/64; PULSE 103
[2023-10-26] MEDS ORDERED: Sodium Chloride 0.9% 10 ML Syringe FLUSH PRN (09:42)
[2023-10-26 10:00] LABS: HEMATOCRIT 45.6 % (40.0-54.0); HEMOGLOBIN 16.4 g/dL (13.0-18.0); MEAN CORPUSCULAR HEMOGLOBIN 34.8 pg (27.0-32.0); MEAN PLATELET VOLUME 9.3 fL (6.0-10.0); RED BLOOD CELL COUNT 4.71 M/uL (4.50-6.50); RED CELL DISTRIBUTION WIDTH 12.4 % (11.0-16.0); WHITE BLOOD CELL COUNT,WBC 11.3 K/uL (4.0-11.0)
[2023-10-26 10:20] LABS: MAGNESIUM 1.8 mg/dL (1.8-2.4); PHOSPHORUS 3.5 mg/dL (2.5-4.9)
[2023-10-26 10:30] LABS: ANION GAP 8.5 mmol/L (5.0-15.0); BUN/CREATININE RATIO 15.3 (6-25); CALCIUM 8.8 mg/dL (8.5-10.1); CARBON DIOXIDE,CO2 35.1 mmol/L (21.0-32.0); CREATININE 0.72 mg/dL (0.70-1.30); EST CRCL DRUG DOSING (CG) 109.9 mL/min; POTASSIUM,K 4.6 mmol/L (3.5-5.1)
[2023-10-26] MEDS ORDERED: Furosemide 20 MG Tab PO ONE (10:37)
[2023-10-26] MEDS ORDERED: Albuterol/Ipratropium 3.0-0.5 MG/3 ML Neb Soln NEB SCH (10:45)
== END 2023-10-26 11:47 | disposition home or self-care (01) ==
LOC: LB.ED 09:28
DX: R60.0 Localized edema (principal); F17.210 Nicotine dependence, cigarettes, uncomplicated; J43.9 Emphysema, unspecified; I10 Essential (primary) hypertension; I25.10 Atherosclerotic heart disease of native coronary artery without angina pectoris; Z79.899 Other long term (current) drug therapy
CPT/HCPCS: 36415; 71046; 80048; 83735; 83880; 84100; 84484; 85027; 93005; 93010; 93306; 94640; 99284; 99285; A9270-GY; J7620

== ENCOUNTER 2023-10-27 07:24 | Inpatient (IN) | payer MEDICARE, MEDICAID ==
[2023-10-27] MEDS ORDERED: Morphine 4 MG/ML VIAL IVPUSH ONE ×2 (07:29→08:09)
[2023-10-27] MEDS ORDERED: Morphine 4 MG/ML VIAL ONE (08:05)
[2023-10-27] MEDS ORDERED: Sodium Chloride 0.9% 10 ML Syringe FLUSH PRN (08:28)
[2023-10-27 08:47] LABS: HEMATOCRIT 44.3 % (40.0-54.0); HEMOGLOBIN 15.4 g/dL (13.0-18.0); MEAN CORPUSCULAR HEMOGLOBIN 34.1 pg (27.0-32.0); MEAN CORPUSCULAR HGB CONC 34.8 g/dL (31.0-35.0); MEAN PLATELET VOLUME 9.2 fL (6.0-10.0); RED BLOOD CELL COUNT 4.52 M/uL (4.50-6.50); RED CELL DISTRIBUTION WIDTH 12.2 % (11.0-16.0); WHITE BLOOD CELL COUNT,WBC 18.8 K/uL (4.0-11.0)
[2023-10-27] MEDS ORDERED: Ketorolac 30 MG/ML SDV ONE (09:09)
[2023-10-27] MEDS ORDERED: Orphenadrine 60 MG/2 ML Inj ONE (09:09)
[2023-10-27] MEDS ORDERED: Orphenadrine 60 MG/2 ML Inj IV ONE (09:10)
[2023-10-27] MEDS: Ketorolac 30 MG/ML SDV IVPUSH PRN (09:12)
[2023-10-27 09:16] LABS: ANION GAP 10.7 mmol/L (5.0-15.0); BUN/CREATININE RATIO 16.7 (6-25); CALCIUM 8.3 mg/dL (8.5-10.1); CARBON DIOXIDE,CO2 30.8 mmol/L (21.0-32.0); CREATININE 0.48 mg/dL (0.70-1.30); EST CRCL DRUG DOSING (CG) 164.85 mL/min; POTASSIUM,K 4.5 mmol/L (3.5-5.1); TROPONIN I HIGH SENSITIVITY 10.2 pg/ml (<=60.4)
[2023-10-27] MEDS ORDERED: cefTRIAXone 1 GM Vial ONE (10:13)
[2023-10-27] MEDS ORDERED: cefTRIAXone 1 GM Vial IVPUSH SCH (10:15)
[2023-10-27] MEDS ORDERED: Albuterol/Ipratropium 3.0-0.5 MG/3 ML Neb Soln NEB PRN (10:22)
[2023-10-27] MEDS ORDERED: Albuterol/Ipratropium 3.0-0.5 MG/3 ML Neb Soln INH PRN (10:28)
[2023-10-27] MEDS ORDERED: Albuterol 90 MCG/6.7 GM Inhaler INH PRN (10:28)
[2023-10-27] MEDS: Azithromycin 250 MG Tab PO SCH (11:04)
[2023-10-27] MEDS: HYDROmorphone 2 MG/ML Syringe IV PRN ×3 (11:04→22:23)
[2023-10-27] MEDS: Formoterol/Mometasone 200-5 MCG 8.8 GM Inhaler IH SCH ×2 (11:55→20:14)
[2023-10-27] MEDS: Tiotropium Bromide 4 GM Inhalation Spray (2.5mcg/1 dose; 10 doses) INH SCH (11:55)
[2023-10-28] MEDS: HYDROmorphone 2 MG/ML Syringe IV PRN ×4 (00:14→10:15)
[2023-10-28] MEDS: Acetaminophen/HYDROcodone 325-5 MG Tab PO PRN ×3 (00:14→23:02)
[2023-10-28] MEDS ORDERED: Non-Formulary Medication 1 Each (Fluticasone/Umeclidin/Vilanter [Trelegy Ellipta 200-62.5- PO SCH (08:00)
[2023-10-28 08:14] LABS: ANION GAP 6.5 mmol/L (5.0-15.0); BUN/CREATININE RATIO 17.9 (6-25); CALCIUM 8.3 mg/dL (8.5-10.1); CARBON DIOXIDE,CO2 35.2 mmol/L (21.0-32.0); CREATININE 0.56 mg/dL (0.70-1.30); EST CRCL DRUG DOSING (CG) 138.49 mL/min; HEMATOCRIT 41.1 % (40.0-54.0); MEAN CORPUSCULAR HEMOGLOBIN 34.2 pg (27.0-32.0); MEAN CORPUSCULAR HGB CONC 34.1 g/dL (31.0-35.0); MEAN PLATELET VOLUME 9.4 fL (6.0-10.0); POTASSIUM,K 4.7 mmol/L (3.5-5.1); RED BLOOD CELL COUNT 4.09 M/uL (4.50-6.50); RED CELL DISTRIBUTION WIDTH 12.2 % (11.0-16.0); WHITE BLOOD CELL COUNT,WBC 15.2 K/uL (4.0-11.0)
[2023-10-28] MEDS: Azithromycin 250 MG Tab PO SCH (08:18)
[2023-10-28] MEDS: Tiotropium Bromide 4 GM Inhalation Spray (2.5mcg/1 dose; 10 doses) INH SCH (08:20)
[2023-10-28] MEDS: Formoterol/Mometasone 200-5 MCG 8.8 GM Inhaler IH SCH ×2 (08:20→20:00)
[2023-10-28] MEDS: Lisinopril 10 MG Tab PO SCH (08:20)
[2023-10-28] MEDS: Furosemide 20 MG Tab PO SCH (08:20)
[2023-10-28] MEDS ORDERED: Nicotine 7 MG/24 Hr Patch ONE (10:06)
[2023-10-28] MEDS ORDERED: Cyclobenzaprine 5 MG Tab ONE (10:06)
[2023-10-28] MEDS ORDERED: Ketorolac 10 MG Tab ONE (10:06)
[2023-10-28] MEDS ORDERED: fentaNYL 25 MCG/HR Transdermal Patch ONE (10:06)
[2023-10-28] MEDS: fentaNYL 25 MCG/HR Transdermal Patch TRDERM SCH (10:10)
[2023-10-28] MEDS: Cyclobenzaprine 5 MG Tab PO SCH ×3 (10:10→19:26)
[2023-10-28] MEDS: Ketorolac 10 MG Tab PO SCH ×2 (10:10→18:09)
[2023-10-28] MEDS: cefTRIAXone 1 GM Vial IVPUSH SCH (10:11)
[2023-10-29] MEDS: Ketorolac 10 MG Tab PO SCH ×3 (01:47→17:28)
[2023-10-29] MEDS: Cyclobenzaprine 5 MG Tab PO SCH ×2 (08:12→19:11)
[2023-10-29] MEDS: Furosemide 20 MG Tab PO SCH (08:12)
[2023-10-29] MEDS: Nicotine 7 MG/24 Hr Patch TRDERM SCH (08:13)
[2023-10-29] MEDS: Azithromycin 250 MG Tab PO SCH (08:13)
[2023-10-29] MEDS: Lisinopril 10 MG Tab PO SCH (08:13)
[2023-10-29 08:14] LABS: HEMATOCRIT 40.4 % (40.0-54.0); HEMOGLOBIN 13.6 g/dL (13.0-18.0); MEAN CORPUSCULAR HEMOGLOBIN 33.7 pg (27.0-32.0); MEAN CORPUSCULAR HGB CONC 33.7 g/dL (31.0-35.0); MEAN PLATELET VOLUME 9.5 fL (6.0-10.0); RED BLOOD CELL COUNT 4.04 M/uL (4.50-6.50); RED CELL DISTRIBUTION WIDTH 12.1 % (11.0-16.0)
[2023-10-29] MEDS: Formoterol/Mometasone 200-5 MCG 8.8 GM Inhaler IH SCH ×2 (08:15→19:11)
[2023-10-29] MEDS: Tiotropium Bromide 4 GM Inhalation Spray (2.5mcg/1 dose; 10 doses) INH SCH (08:15)
[2023-10-29 08:32] LABS: ANION GAP 6.8 mmol/L (5.0-15.0); BUN/CREATININE RATIO 25.5 (6-25); CALCIUM 8.4 mg/dL (8.5-10.1); CREATININE 0.55 mg/dL (0.70-1.30); EST CRCL DRUG DOSING (CG) 141.01 mL/min; POTASSIUM,K 4.8 mmol/L (3.5-5.1)
[2023-10-29] MEDS ORDERED: Lidocaine 1% 5 ML VIAL ONE (10:51)
[2023-10-29] MEDS: cefTRIAXone 1 GM Vial IVPUSH SCH (11:03)
[2023-10-29] MEDS ORDERED: Azithromycin 250 MG Tab PO ONE (16:39)
[2023-10-29] MEDS ORDERED: Albuterol 0.083% 2.5 MG/3 ML Neb Soln NEB PRN (18:01)
[2023-10-29] MEDS: Albuterol/Ipratropium 3.0-0.5 MG/3 ML Neb Soln NEB SCH (19:13)
[2023-10-29] MEDS: cefTRIAXone 1 GM in Sodium Chloride 0.9% 50 ML IV SCH (19:14)
[2023-10-29] MEDS ORDERED: Bisacodyl 5 MG Tab PO ONE (20:00)
[2023-10-30] MEDS: Ketorolac 30 MG/ML SDV IVPUSH PRN ×2 (00:19→22:13)
[2023-10-30] MEDS: Albuterol/Ipratropium 3.0-0.5 MG/3 ML Neb Soln NEB SCH ×5 (02:52→19:35)
[2023-10-30] MEDS: Ketorolac 10 MG Tab PO SCH (02:52)
[2023-10-30] MEDS: Acetaminophen/HYDROcodone 325-5 MG Tab PO PRN ×2 (07:10→15:27)
[2023-10-30 08:37] LABS: BASOPHILS ABSOLUTE AUTO 0.04 K/uL (0.02-0.10); BASOPHILS PERCENT AUTO 0.3 % (0.0-0.5); EOSINOPHILS PERCENT AUTO 1.5 % (1.0-5.0); LYMPHOCYTES PERCENT AUTO 7.6 % (20.0-40.0); MEAN CORPUSCULAR HEMOGLOBIN 34.1 pg (27.0-32.0); MEAN CORPUSCULAR HGB CONC 34.2 g/dL (31.0-35.0); MEAN CORPUSCULAR VOLUME 100 fL (76-96); MEAN PLATELET VOLUME 9.6 fL (6.0-10.0); MONOCYTES ABSOLUTE AUTO 1.13 K/uL (0.20-0.80); MONOCYTES PERCENT AUTO 8.6 % (3.0-10.0); NEUTROPHILS ABSOLUTE AUTO 10.76 K/uL (2.00-7.50); PLATELET COUNT,PLT 568 K/uL (150-400); RED BLOOD CELL COUNT 3.81 M/uL (4.50-6.50); RED CELL DISTRIBUTION WIDTH 12.2 % (11.0-16.0); WHITE BLOOD CELL COUNT,WBC 13.1 K/uL (4.0-11.0)
[2023-10-30 08:47] LABS: A/G RATIO 0.5 (0.8-2.0); ALBUMIN 1.9 g/dL (3.4-5.0); ANION GAP 6.7 mmol/L (5.0-15.0); BILIRUBIN TOTAL 0.3 mg/dL (0.0-1.0); BUN/CREATININE RATIO 20.8 (6-25); CALCIUM 8.3 mg/dL (8.5-10.1); CARBON DIOXIDE,CO2 31.9 mmol/L (21.0-32.0); CREATININE 0.72 mg/dL (0.70-1.30); EST CRCL DRUG DOSING (CG) 107.72 mL/min; POTASSIUM,K 4.6 mmol/L (3.5-5.1); PROTEIN TOTAL,TP 5.4 g/dL (6.4-8.2)
[2023-10-30] MEDS: Tiotropium Bromide 4 GM Inhalation Spray (2.5mcg/1 dose; 10 doses) INH SCH (08:51)
[2023-10-30] MEDS: Formoterol/Mometasone 200-5 MCG 8.8 GM Inhaler IH SCH ×2 (08:52→19:34)
[2023-10-30] MEDS: Cyclobenzaprine 5 MG Tab PO SCH ×2 (09:09→19:34)
[2023-10-30] MEDS: Nicotine 7 MG/24 Hr Patch TRDERM SCH (09:09)
[2023-10-30] MEDS: Azithromycin 250 MG Tab PO SCH (09:12)
[2023-10-30] MEDS: Furosemide 20 MG Tab PO SCH (09:12)
[2023-10-30] MEDS: cefTRIAXone 1 GM in Sodium Chloride 0.9% 50 ML IV SCH ×2 (09:15→19:31)
[2023-10-31] MEDS: Acetaminophen/HYDROcodone 325-5 MG Tab PO PRN ×3 (00:12→16:03)
[2023-10-31] MEDS: Ketorolac 30 MG/ML SDV IVPUSH PRN (04:44)
[2023-10-31] MEDS: cefTRIAXone 1 GM in Sodium Chloride 0.9% 50 ML IV SCH ×2 (08:01→19:38)
[2023-10-31] MEDS: Tiotropium Bromide 4 GM Inhalation Spray (2.5mcg/1 dose; 10 doses) INH SCH (08:06)
[2023-10-31] MEDS: Formoterol/Mometasone 200-5 MCG 8.8 GM Inhaler IH SCH ×2 (08:06→19:37)
[2023-10-31] MEDS: Albuterol/Ipratropium 3.0-0.5 MG/3 ML Neb Soln NEB SCH ×4 (08:06→19:38)
[2023-10-31] MEDS: Azithromycin 250 MG Tab PO SCH (08:07)
[2023-10-31] MEDS: Furosemide 20 MG Tab PO SCH (08:07)
[2023-10-31] MEDS: Cyclobenzaprine 5 MG Tab PO SCH ×2 (08:08→19:38)
[2023-10-31] MEDS: Nicotine 7 MG/24 Hr Patch TRDERM SCH (08:08)
[2023-10-31] MEDS: fentaNYL 25 MCG/HR Transdermal Patch TRDERM SCH (10:46)
[2023-10-31] MEDS: Gabapentin 300 MG Cap PO SCH ×2 (13:56→19:38)
[2023-11-01] MEDS: Acetaminophen/HYDROcodone 325-5 MG Tab PO PRN ×2 (06:22→19:56)
[2023-11-01 07:54] LABS: BASOPHILS ABSOLUTE AUTO 0.09 K/uL (0.02-0.10); BASOPHILS PERCENT AUTO 0.5 % (0.0-0.5); EOSINOPHILS ABSOLUTE AUTO 0.27 K/uL (0.04-0.40); EOSINOPHILS PERCENT AUTO 1.5 % (1.0-5.0); HEMATOCRIT 40.2 % (40.0-54.0); HEMOGLOBIN 13.6 g/dL (13.0-18.0); LYMPHOCYTES PERCENT AUTO 5.7 % (20.0-40.0); MEAN CORPUSCULAR HEMOGLOBIN 33.7 pg (27.0-32.0); MEAN CORPUSCULAR HGB CONC 33.8 g/dL (31.0-35.0); MEAN CORPUSCULAR VOLUME 100 fL (76-96); MEAN PLATELET VOLUME 9.1 fL (6.0-10.0); MONOCYTES ABSOLUTE AUTO 1.65 K/uL (0.20-0.80); MONOCYTES PERCENT AUTO 9.4 % (3.0-10.0); NEUTROPHILS ABSOLUTE AUTO 14.48 K/uL (2.00-7.50); NEUTROPHILS PERCENT AUTO 82.9 % (45.0-70.0); RED BLOOD CELL COUNT 4.03 M/uL (4.50-6.50); RED CELL DISTRIBUTION WIDTH 12.4 % (11.0-16.0); WHITE BLOOD CELL COUNT,WBC 17.5 K/uL (4.0-11.0)
[2023-11-01 07:56] LABS: PLATELET COUNT,PLT 647 K/uL (150-400)
[2023-11-01] MEDS: Tiotropium Bromide 4 GM Inhalation Spray (2.5mcg/1 dose; 10 doses) INH SCH (08:02)
[2023-11-01] MEDS: Formoterol/Mometasone 200-5 MCG 8.8 GM Inhaler IH SCH ×2 (08:03→19:57)
[2023-11-01] MEDS: cefTRIAXone 1 GM in Sodium Chloride 0.9% 50 ML IV SCH (08:03)
[2023-11-01] MEDS: Nicotine 7 MG/24 Hr Patch TRDERM SCH (08:05)
[2023-11-01 08:07] LABS: ANION GAP 6.2 mmol/L (5.0-15.0); BUN/CREATININE RATIO 20.4 (6-25); CALCIUM 8.4 mg/dL (8.5-10.1); CARBON DIOXIDE,CO2 32.5 mmol/L (21.0-32.0); CREATININE 0.54 mg/dL (0.70-1.30); EST CRCL DRUG DOSING (CG) 143.62 mL/min; POTASSIUM,K 4.7 mmol/L (3.5-5.1)
[2023-11-01] MEDS: Albuterol/Ipratropium 3.0-0.5 MG/3 ML Neb Soln NEB SCH ×4 (08:07→19:57)
[2023-11-01] MEDS: Vitamin B6-pyridOXINE 50 MG Tab PO SCH (08:07)
[2023-11-01] MEDS: Azithromycin 250 MG Tab PO SCH (08:07)
[2023-11-01] MEDS: Thiamine 100 MG Tab PO SCH (08:07)
[2023-11-01] MEDS: Cyclobenzaprine 5 MG Tab PO SCH ×2 (08:08→19:56)
[2023-11-01] MEDS: Lisinopril 10 MG Tab PO SCH (08:08)
[2023-11-01] MEDS: Gabapentin 300 MG Cap PO SCH ×3 (08:09→19:56)
[2023-11-01] MEDS: Furosemide 20 MG Tab PO SCH (08:09)
[2023-11-01] MEDS: Levofloxacin/Dextrose 5%-Water 150 ML IV SCH (12:30)
[2023-11-02] MEDS: Tiotropium Bromide 4 GM Inhalation Spray (2.5mcg/1 dose; 10 doses) INH SCH (08:06)
[2023-11-02] MEDS: Cyclobenzaprine 5 MG Tab PO SCH ×2 (08:07→19:37)
[2023-11-02] MEDS: Formoterol/Mometasone 200-5 MCG 8.8 GM Inhaler IH SCH ×2 (08:07→19:39)
[2023-11-02] MEDS: Albuterol/Ipratropium 3.0-0.5 MG/3 ML Neb Soln NEB SCH ×4 (08:07→19:37)
[2023-11-02] MEDS: Gabapentin 300 MG Cap PO SCH ×2 (08:08→14:18)
[2023-11-02] MEDS: Furosemide 20 MG Tab PO SCH (08:08)
[2023-11-02] MEDS: Nicotine 7 MG/24 Hr Patch TRDERM SCH (08:08)
[2023-11-02] MEDS: Vitamin B6-pyridOXINE 50 MG Tab PO SCH (08:09)
[2023-11-02] MEDS: Thiamine 100 MG Tab PO SCH (08:09)
[2023-11-02 08:10] LABS: BASOPHILS ABSOLUTE AUTO 0.08 K/uL (0.02-0.10); BASOPHILS PERCENT AUTO 0.6 % (0.0-0.5); EOSINOPHILS ABSOLUTE AUTO 0.28 K/uL (0.04-0.40); HEMATOCRIT 39.6 % (40.0-54.0); HEMOGLOBIN 13.2 g/dL (13.0-18.0); LYMPHOCYTES ABSOLUTE AUTO 1.26 K/uL (1.50-4.00); LYMPHOCYTES PERCENT AUTO 8.8 % (20.0-40.0); MEAN CORPUSCULAR HEMOGLOBIN 33.6 pg (27.0-32.0); MEAN CORPUSCULAR HGB CONC 33.3 g/dL (31.0-35.0); MEAN CORPUSCULAR VOLUME 101 fL (76-96); MEAN PLATELET VOLUME 9.2 fL (6.0-10.0); MONOCYTES ABSOLUTE AUTO 1.62 K/uL (0.20-0.80); MONOCYTES PERCENT AUTO 11.3 % (3.0-10.0); NEUTROPHILS ABSOLUTE AUTO 11.06 K/uL (2.00-7.50); NEUTROPHILS PERCENT AUTO 77.3 % (45.0-70.0); RED BLOOD CELL COUNT 3.93 M/uL (4.50-6.50); RED CELL DISTRIBUTION WIDTH 12.4 % (11.0-16.0); WHITE BLOOD CELL COUNT,WBC 14.3 K/uL (4.0-11.0)
[2023-11-02] MEDS: Lisinopril 10 MG Tab PO SCH (08:10)
[2023-11-02 08:12] LABS: PLATELET COUNT,PLT 652 K/uL (150-400)
[2023-11-02 08:20] LABS: A/G RATIO 0.5 (0.8-2.0); ALBUMIN 1.9 g/dL (3.4-5.0); ANION GAP 6.1 mmol/L (5.0-15.0); BILIRUBIN TOTAL 0.4 mg/dL (0.0-1.0); BUN/CREATININE RATIO 21.6 (6-25); CALCIUM 8.5 mg/dL (8.5-10.1); CARBON DIOXIDE,CO2 33.4 mmol/L (21.0-32.0); CREATININE 0.51 mg/dL (0.70-1.30); EST CRCL DRUG DOSING (CG) 152.07 mL/min; POTASSIUM,K 4.5 mmol/L (3.5-5.1); PROTEIN TOTAL,TP 5.8 g/dL (6.4-8.2)
[2023-11-02] MEDS: Levofloxacin/Dextrose 5%-Water 150 ML IV SCH (12:57)
[2023-11-02] MEDS: Acetaminophen/HYDROcodone 325-5 MG Tab PO PRN (16:46)
[2023-11-02] MEDS ORDERED: Ketorolac 30 MG/ML SDV IM PRN (19:13)
[2023-11-02] MEDS: Gabapentin 400 MG Cap PO SCH (19:39)
[2023-11-02] MEDS ORDERED: Ketorolac 30 MG/ML SDV IVPUSH PRN ×2 (22:51→23:47)
[2023-11-03] MEDS: Acetaminophen/HYDROcodone 325-5 MG Tab PO PRN ×2 (02:41→22:06)
[2023-11-03] MEDS: Nicotine 7 MG/24 Hr Patch TRDERM SCH (07:39)
[2023-11-03] MEDS: Albuterol/Ipratropium 3.0-0.5 MG/3 ML Neb Soln NEB SCH ×4 (07:39→19:25)
[2023-11-03] MEDS: Furosemide 20 MG Tab PO SCH (07:40)
[2023-11-03] MEDS: Gabapentin 400 MG Cap PO SCH ×3 (07:40→19:25)
[2023-11-03] MEDS: Vitamin B6-pyridOXINE 50 MG Tab PO SCH (07:40)
[2023-11-03] MEDS: Tiotropium Bromide 4 GM Inhalation Spray (2.5mcg/1 dose; 10 doses) INH SCH (07:40)
[2023-11-03] MEDS: Cyclobenzaprine 5 MG Tab PO SCH ×2 (07:40→19:25)
[2023-11-03] MEDS: Thiamine 100 MG Tab PO SCH (07:40)
[2023-11-03] MEDS: Formoterol/Mometasone 200-5 MCG 8.8 GM Inhaler IH SCH ×2 (07:41→19:25)
[2023-11-03 09:18] LABS: MEAN CORPUSCULAR HEMOGLOBIN 33.3 pg (27.0-32.0); MEAN CORPUSCULAR HGB CONC 33.3 g/dL (31.0-35.0); MEAN CORPUSCULAR VOLUME 100 fL (76-96); RED BLOOD CELL COUNT 4.21 M/uL (4.50-6.50); RED CELL DISTRIBUTION WIDTH 12.5 % (11.0-16.0); WHITE BLOOD CELL COUNT,WBC 13.4 K/uL (4.0-11.0)
[2023-11-03 09:22] LABS: PLATELET COUNT,PLT 633 K/uL (150-400)
[2023-11-03 09:39] LABS: A/G RATIO 0.5 (0.8-2.0); ALBUMIN 2.1 g/dL (3.4-5.0); BILIRUBIN TOTAL 0.4 mg/dL (0.0-1.0); BUN/CREATININE RATIO 29.2 (6-25); CALCIUM 8.9 mg/dL (8.5-10.1); CARBON DIOXIDE,CO2 34.8 mmol/L (21.0-32.0); CREATININE 0.65 mg/dL (0.70-1.30); EST CRCL DRUG DOSING (CG) 119.32 mL/min; POTASSIUM,K 4.8 mmol/L (3.5-5.1); PROTEIN TOTAL,TP 6.2 g/dL (6.4-8.2)
[2023-11-03 09:45] LABS: GIANT PLATELETS OCCASIONAL; PLATELET COUNT ESTIMATE MARKED INC
[2023-11-03] MEDS ORDERED: fentaNYL 12 MCG/HR Transdermal Patch TRDERM SCH (09:45)
[2023-11-03] MEDS ORDERED: fentaNYL 12 MCG/HR Transdermal Patch ONE (10:13)
[2023-11-03] MEDS: Levofloxacin/Dextrose 5%-Water 150 ML IV SCH (12:13)
[2023-11-04] MEDS: Cyclobenzaprine 5 MG Tab PO SCH (07:54)
[2023-11-04] MEDS: Formoterol/Mometasone 200-5 MCG 8.8 GM Inhaler IH SCH (07:54)
[2023-11-04] MEDS: Albuterol/Ipratropium 3.0-0.5 MG/3 ML Neb Soln NEB SCH (07:54)
[2023-11-04] MEDS: Furosemide 20 MG Tab PO SCH (07:55)
[2023-11-04] MEDS: Gabapentin 400 MG Cap PO SCH (07:55)
[2023-11-04] MEDS: Nicotine 7 MG/24 Hr Patch TRDERM SCH (07:55)
[2023-11-04] MEDS: Vitamin B6-pyridOXINE 50 MG Tab PO SCH (07:56)
[2023-11-04] MEDS: Thiamine 100 MG Tab PO SCH (07:56)
[2023-11-04] MEDS: Tiotropium Bromide 4 GM Inhalation Spray (2.5mcg/1 dose; 10 doses) INH SCH (07:56)
[2023-11-04] MEDS: Lisinopril 10 MG Tab PO SCH (08:28)
[2023-11-04 09:59] VITALS: BP 120/75; PULSE 103
[2023-11-05 19:53] LABS: FOLATE,SERUM 8.3 ng/mL (>=5.9)
== END 2023-11-04 10:45 | disposition home or self-care (01) | DRG 551 ==
LOC: LB.ED 07:24 → LB.MS 10:22
PROVIDERS: ADMIT Surgery; ATTEND Surgery
DX: S22.089A Unspecified fracture of T11-T12 vertebra, initial encounter for closed fracture (principal); S39.92XA Unspecified injury of lower back, initial encounter; S22.080A Wedge compression fracture of T11-T12 vertebra, initial encounter for closed fracture; J44.9 Chronic obstructive pulmonary disease, unspecified; J69.0 Pneumonitis due to inhalation of food and vomit; E87.1 Hypo-osmolality and hyponatremia; I25.10 Atherosclerotic heart disease of native coronary artery without angina pectoris; Z79.899 Other long term (current) drug therapy; I10 Essential (primary) hypertension; Y92.009 Unspecified place in unspecified non-institutional (private) residence as the place of occurrence of the external cause; F17.210 Nicotine dependence, cigarettes, uncomplicated; R60.0 Localized edema; J43.8 Other emphysema; Z99.81 Dependence on supplemental oxygen; E88.09 Other disorders of plasma-protein metabolism, not elsewhere classified; W01.0XXA Fall on same level from slipping, tripping and stumbling without subsequent striking against object, initial encounter; Y92.008 Other place in unspecified non-institutional (private) residence as the place of occurrence of the external cause
CPT/HCPCS: 36415; 71045; 72128; 72131; 80048; 80053; 82607; 82746; 83880; 84443; 84484; 85025; 85027; 87040; 93005; 93010; 94640; 96374; 96375; 96376; 97162-GP; 97165-GO; 97530-GO; 97530-GP; 97535-GO; 99285; 99285-25; A9270-GY; J0696; J1170; J1885; J1956; J2270; J2360; J3490; J7620

== ENCOUNTER 2023-11-13 11:48 | Emergency (ER) | payer MEDICARE, MEDICAID ==
[2023-11-13] MEDS: HYDROmorphone 2 MG/ML Syringe SUBCUT ONE (12:46)
[2023-11-13] MEDS: HYDROmorphone 2 MG/ML Syringe ONE (13:32)
[2023-11-13 16:38] VITALS: BP 100/65; PULSE 84
== END 2023-11-13 15:02 ==
LOC: LB.ED 11:48
DX: M79.671 Pain in right foot (principal); I10 Essential (primary) hypertension; I25.10 Atherosclerotic heart disease of native coronary artery without angina pectoris; J44.9 Chronic obstructive pulmonary disease, unspecified; Z79.899 Other long term (current) drug therapy
CPT/HCPCS: 96372; 99284; J1170